=== PATIENT | male | born 1985 | race Caucasian/White ===

== ENCOUNTER 2018-10-23 12:37 | Outpatient (RCR) | payer OTHER | END 2019-01-21 | disposition still patient (30) | LOC: WSOH | DX: M65.831 Other synovitis and tenosynovitis, right forearm (principal); M79.631 Pain in right forearm; X50.3XXA Overexertion from repetitive movements, initial encounter; Y92.59 Other trade areas as the place of occurrence of the external cause; Y99.0 Civilian activity done for income or pay; F32.9 Major depressive disorder, single episode, unspecified; F41.9 Anxiety disorder, unspecified; E78.00 Pure hypercholesterolemia, unspecified; Z79.899 Other long term (current) drug therapy ==